=== PATIENT | female | born 1985 | race Hispanic/Latino ===

== ENCOUNTER → 2023-08-18 09:32 | Outpatient (REF) | payer OTHER, SELFPAY ==
[2023-08-18 10:23] LABS: Hemoglobin 9.2 g/dL (12.0-16.0); Mean Corp Hgb Conc. 30.7 g/dL (33.0-37.0); Mean Corpuscular Hgb 20.2 pg (27.0-31.0); Mean Corpuscular Volume 65.8 fL (81.0-99.0); Mean Platelet Volume 9.8 fL (7.4-10.4); Platelet Count 259 10^3/uL (130-400); Red Blood Cell Count 4.56 10^6/uL (4.20-5.40); Red Cell Dist. Width 20.7 % (11.5-14.5)
[2023-08-18 10:50] LABS: ALT (SGPT) 16 U/L (0-35); AST (SGOT) 21 U/L (14-36); Albumin 4.1 g/dl (3.5-5.0); Alkaline Phosphatase 137 U/L (38-126); Blood Urea Nitrogen 12 mg/dl (7-17); Calcium 9.1 mg/dl (8.4-10.2); Carbon Dioxide 24 mmol/L (22-30); Chloride 104 mmol/L (98-107); GGTP 18 U/L (12-43); Glucose 98 mg/dl (70-99); Sodium 134 mmol/L (135-145); Total Bilirubin 0.6 mg/dl (0.2-1.3); Total Protein 7.4 g/dl (6.3-8.2); eGFR > 60.00
[2023-08-18 11:01] LABS: Microalbumin, Random Urine <0.6 mg/dl (0.6-1.7)
[2023-08-18 11:08] LABS: Vitamin D, 25-OH*** 20.1 ng/mL (30-80)
[2023-08-18 14:27] LABS: Glycohemoglobin (HgbA1c) 7.9 % (4.0-5.6)
== END ==
LOC: CLINIC 09:32
PROVIDERS: ATTENDING PHYSICIAN Nurse Practitioner Adult Health
DX: E11.9 Type 2 diabetes mellitus without complications (principal); R80.9 Proteinuria, unspecified; K76.0 Fatty (change of) liver, not elsewhere classified; D64.9 Anemia, unspecified; E55.9 Vitamin D deficiency, unspecified
CPT/HCPCS: 36415; 80053; 82043; 82306; 82570; 82977; 83036; 85027

== ENCOUNTER → 2023-10-22 09:11 | Outpatient (REF) | payer OTHER, SELFPAY ==
[2023-10-22 10:01] LABS: Hematocrit 29.3 % (37.0-47.0); Hemoglobin 8.6 g/dL (12.0-16.0); Mean Corp Hgb Conc. 29.4 g/dL (33.0-37.0); Mean Corpuscular Hgb 19.2 pg (27.0-31.0); Mean Corpuscular Volume 65.3 fL (81.0-99.0); Mean Platelet Volume 10.4 fL (7.4-10.4); Platelet Count 258 10^3/uL (130-400); Red Blood Cell Count 4.49 10^6/uL (4.20-5.40); Red Cell Dist. Width 19.6 % (11.5-14.5); White Blood Cell Count 9.5 10^3/uL (4.8-10.8)
[2023-10-22 10:27] LABS: ALT (SGPT) 24 U/L (0-35); AST (SGOT) 23 U/L (14-36); Albumin 4.2 g/dl (3.5-5.0); Alkaline Phosphatase 132 U/L (38-126); Blood Urea Nitrogen 9 mg/dl (7-17); Carbon Dioxide 26 mmol/L (22-30); Chloride 105 mmol/L (98-107); Glucose 63 mg/dl (70-99); Potassium 3.9 mmol/L (3.5-5.1); Sodium 136 mmol/L (135-145); Total Bilirubin 0.5 mg/dl (0.2-1.3); Total Protein 7.5 g/dl (6.3-8.2); eGFR > 60.00
[2023-10-22 11:08] LABS: Vitamin B12 428 pg/ml (239-931)
[2023-10-22 12:51] LABS: Glycohemoglobin (HgbA1c) 8.7 % (4.0-5.6)
== END ==
LOC: CLINIC 09:11
PROVIDERS: ATTENDING PHYSICIAN Nurse Practitioner Adult Health
DX: E11.9 Type 2 diabetes mellitus without complications (principal); D64.9 Anemia, unspecified; E55.9 Vitamin D deficiency, unspecified
CPT/HCPCS: 36415; 80053; 82306; 82607; 83036; 85027

== ENCOUNTER → 2023-11-19 07:43 | Outpatient (REF) | payer OTHER, SELFPAY ==
[2023-11-19 09:00] LABS: Hematocrit 32.6 % (37.0-47.0); Hemoglobin 9.8 g/dL (12.0-16.0); Mean Corp Hgb Conc. 30.1 g/dL (33.0-37.0); Mean Corpuscular Hgb 19.3 pg (27.0-31.0); Mean Corpuscular Volume 64.3 fL (81.0-99.0); Platelet Count 260 10^3/uL (130-400); Red Blood Cell Count 5.07 10^6/uL (4.20-5.40); Red Cell Dist. Width 21.9 % (11.5-14.5); Reticulocyte Count 2.4 % (0.4-2.8); White Blood Cell Count 12.4 10^3/uL (4.8-10.8)
[2023-11-19 09:15] LABS: Normal RBC Morphology No
[2023-11-19 09:16] LABS: Anisocytosis Slight
[2023-11-19 09:17] LABS: Microcytosis Slight; Stomatocytes Slight
[2023-11-19 09:24] LABS: Iron 34 ug/dl (37-170)
[2023-11-19 09:34] LABS: Percent Saturation 7 % (20-50); Total Iron Binding Capacity 478 ug/dl (265-497)
[2023-11-19 09:50] LABS: Vitamin D, 25-OH*** 23.1 ng/mL (30-80)
[2023-11-19 10:08] LABS: Ferritin 4.4 ng/ml (6.24-137)
[2023-11-19 10:23] LABS: Vitamin B12 642 pg/ml (239-931)
[2023-11-19 12:10] LABS: Glycohemoglobin (HgbA1c) 9.6 % (4.0-5.6)
[2023-11-20 05:11] LABS: H. pylori Breath Test Positive (Negative)
== END ==
LOC: CLINIC 07:43
PROVIDERS: ATTENDING PHYSICIAN Nurse Practitioner Adult Health
DX: D64.9 Anemia, unspecified (principal); E11.9 Type 2 diabetes mellitus without complications; E55.9 Vitamin D deficiency, unspecified
CPT/HCPCS: 36415; 82306; 82607; 82728; 83013; 83036; 83540; 83550; 85027; 85045

== ENCOUNTER → 2024-01-26 10:53 | Outpatient (REF) | payer OTHER, SELFPAY ==
[2024-01-26 13:05] LABS: ALT (SGPT) 13 U/L (0-35); AST (SGOT) 25 U/L (14-36); Albumin 3.8 g/dl (3.5-5.0); Alkaline Phosphatase 106 U/L (38-126); Blood Urea Nitrogen 10 mg/dl (7-17); Calcium 8.8 mg/dl (8.4-10.2); Carbon Dioxide 23 mmol/L (22-30); Chloride 107 mmol/L (98-107); Glucose 93 mg/dl (70-99); Sodium 136 mmol/L (135-145); Total Bilirubin 0.5 mg/dl (0.2-1.3); Total Protein 6.6 g/dl (6.3-8.2); eGFR > 60.00
[2024-01-26 13:13] LABS: Hemoglobin 9.1 g/dL (12.0-16.0); Mean Corp Hgb Conc. 30.3 g/dL (33.0-37.0); Mean Corpuscular Hgb 19.5 pg (27.0-31.0); Mean Corpuscular Volume 64.2 fL (81.0-99.0); Red Blood Cell Count 4.67 10^6/uL (4.20-5.40); Red Cell Dist. Width 21.4 % (11.5-14.5); White Blood Cell Count 6.3 10^3/uL (4.8-10.8)
[2024-01-26 14:01] LABS: Vitamin D, 25-OH*** 18.6 ng/mL (30-80)
[2024-01-26 14:34] LABS: Vitamin B12 435 pg/ml (239-931)
[2024-01-27 13:58] LABS: Glycohemoglobin (HgbA1c) 8.7 % (4.0-5.6)
[2024-01-28 05:05] LABS: H. pylori Breath Test Negative (Negative)
== END ==
LOC: CLINIC 10:53
PROVIDERS: ATTENDING PHYSICIAN Nurse Practitioner Adult Health
DX: E11.9 Type 2 diabetes mellitus without complications (principal); E55.9 Vitamin D deficiency, unspecified; D50.0 Iron deficiency anemia secondary to blood loss (chronic); A04.8 Other specified bacterial intestinal infections
CPT/HCPCS: 36415; 80053; 82306; 82607; 83013; 83036; 85027

== ENCOUNTER → 2024-02-28 11:56 | Outpatient (REF) | payer OTHER, SELFPAY | LOC: CLAB 11:56 | PROVIDERS: ATTENDING PHYSICIAN Obstetrics & Gynecology Gynecology | DX: N92.4 Excessive bleeding in the premenopausal period (principal) | CPT/HCPCS: 88305 ==

== ENCOUNTER → 2024-03-21 09:26 | Outpatient (REF) | payer OTHER, SELFPAY | LOC: RAD 09:26 | PROVIDERS: ATTENDING PHYSICIAN Obstetrics & Gynecology Gynecology; FAMILY PHYSICIAN Nurse Practitioner Adult Health | DX: N92.4 Excessive bleeding in the premenopausal period (principal); D64.9 Anemia, unspecified | CPT/HCPCS: 76830; 76856 ==

== ENCOUNTER → 2024-04-29 09:31 | Outpatient (REF) | payer OTHER, SELFPAY ==
[2024-04-29 11:04] LABS: Hematocrit 33.3 % (37.0-47.0); Hemoglobin 9.8 g/dL (12.0-16.0); Mean Corp Hgb Conc. 29.4 g/dL (33.0-37.0); Mean Corpuscular Hgb 19.8 pg (27.0-31.0); Mean Corpuscular Volume 67.3 fL (81.0-99.0); Mean Platelet Volume 10.3 fL (7.4-10.4); Platelet Count 350 10^3/uL (130-400); Red Blood Cell Count 4.95 10^6/uL (4.20-5.40); Red Cell Dist. Width 19.9 % (11.5-14.5); White Blood Cell Count 8.4 10^3/uL (4.8-10.8)
[2024-04-29 11:36] LABS: Vitamin D, 25-OH*** 20.4 ng/mL (30-80)
[2024-04-29 12:28] LABS: ALT (SGPT) 16 U/L (0-35); AST (SGOT) 20 U/L (14-36); Albumin 4.4 g/dl (3.5-5.0); Alkaline Phosphatase 114 U/L (38-126); Blood Urea Nitrogen 11 mg/dl (7-17); Calcium 9.2 mg/dl (8.4-10.2); Carbon Dioxide 26 mmol/L (22-30); Chloride 102 mmol/L (98-107); Glucose 47 mg/dl (70-99); HDL Cholesterol 40 mg/dl; LDL Cholesterol, Calculated 62 mg/dl; Potassium 3.8 mmol/L (3.5-5.1); Sodium 142 mmol/L (135-145); Total Bilirubin 0.5 mg/dl (0.2-1.3); Total Cholesterol 195 mg/dl (50-199); Total Protein 7.9 g/dl (6.3-8.2); Triglyceride 467 mg/dl (10-149); Very Low Density Lipoprotein 93 mg/dl (0-30); eGFR > 60.00
[2024-04-29 13:06] LABS: Glycohemoglobin (HgbA1c) 8.1 % (4.0-5.6)
[2024-04-29 13:11] LABS: LDL Cholesterol, Direct 83 mg/dl
[2024-04-29 14:32] LABS: Microalbumin, Random Urine 0.8 mg/dl (0.6-1.7); Microalbumin/creatinine Ratio 38.6 mg/g
== END ==
LOC: CLINIC 09:31
PROVIDERS: ATTENDING PHYSICIAN Nurse Practitioner Adult Health
DX: E11.9 Type 2 diabetes mellitus without complications (principal); R80.9 Proteinuria, unspecified; Z86.73 Personal history of transient ischemic attack (TIA), and cerebral infarction without residual deficits; E55.9 Vitamin D deficiency, unspecified; D50.0 Iron deficiency anemia secondary to blood loss (chronic)
CPT/HCPCS: 36415; 80053; 80061; 82043; 82306; 82570; 83036; 83721; 85027

== ENCOUNTER → 2024-06-30 09:35 | Outpatient (REF) | payer OTHER, SELFPAY ==
[2024-06-30 10:45] LABS: % Basophils 0.7 % (0-2); % Immature Granulocytes 0.3 % (0-0.5); % Lymphocytes 25.2 % (20.5-51.1); % Monocytes 6.6 % (1.7-9.3); % Neutrophils 66.2 % (42.2-75.2); Absolute Basophils 0.1 10^3/uL (0-0.2); Absolute Eosinophils 0.1 10^3/uL (0-0.7); Absolute Lymphocytes 2.3 10^3/uL (1.2-3.4); Absolute Monocytes 0.6 10^3/uL (0.1-0.6); Absolute Neutrophils 5.9 10^3/uL (1.4-6.5); Hematocrit 29.8 % (37.0-47.0); Hemoglobin 8.8 g/dL (12.0-16.0); Mean Corp Hgb Conc. 29.5 g/dL (33.0-37.0); Mean Corpuscular Hgb 19.2 pg (27.0-31.0); Mean Corpuscular Volume 65.1 fL (81.0-99.0); Mean Platelet Volume 10.2 fL (7.4-10.4); Nucleated Red Blood Cells % 0 %; Platelet Count 308 10^3/uL (130-400); Red Blood Cell Count 4.58 10^6/uL (4.20-5.40); Red Cell Dist. Width 20.3 % (11.5-14.5); White Blood Cell Count 8.9 10^3/uL (4.8-10.8)
[2024-06-30 11:32] LABS: ALT (SGPT) 16 U/L (0-35); AST (SGOT) 20 U/L (14-36); Albumin 4.2 g/dl (3.5-5.0); Alkaline Phosphatase 123 U/L (38-126); Blood Urea Nitrogen 10 mg/dl (7-17); Calcium 9.1 mg/dl (8.4-10.2); Carbon Dioxide 29 mmol/L (22-30); Chloride 99 mmol/L (98-107); Glucose 57 mg/dl (70-99); HDL Cholesterol 41 mg/dl; LDL Cholesterol, Calculated 66 mg/dl; Potassium 3.9 mmol/L (3.5-5.1); Sodium 140 mmol/L (135-145); Total Bilirubin 0.6 mg/dl (0.2-1.3); Total Cholesterol 174 mg/dl (50-199); Total Protein 7.6 g/dl (6.3-8.2); Triglyceride 335 mg/dl (10-149); Very Low Density Lipoprotein 67 mg/dl (0-30); eGFR > 60.00
[2024-06-30 15:17] LABS: Glycohemoglobin (HgbA1c) 7.5 % (4.0-5.6)
== END ==
LOC: CLINIC 09:35
PROVIDERS: ATTENDING PHYSICIAN Nurse Practitioner Family
DX: E11.9 Type 2 diabetes mellitus without complications (principal); E66.9 Obesity, unspecified
CPT/HCPCS: 36415; 80053; 80061; 83036; 85025

== ENCOUNTER → 2024-07-12 08:58 | Outpatient (REF) | payer OTHER, SELFPAY ==
[2024-07-12 09:40] LABS: Hematocrit 29.8 % (37.0-47.0); Hemoglobin 8.7 g/dL (12.0-16.0); Mean Corp Hgb Conc. 29.2 g/dL (33.0-37.0); Mean Corpuscular Volume 65.1 fL (81.0-99.0); Mean Platelet Volume 9.8 fL (7.4-10.4); Platelet Count 263 10^3/uL (130-400); Red Blood Cell Count 4.58 10^6/uL (4.20-5.40); White Blood Cell Count 7.5 10^3/uL (4.8-10.8)
== END ==
LOC: CLINIC 08:58
PROVIDERS: ATTENDING PHYSICIAN Nurse Practitioner Adult Health
DX: D50.0 Iron deficiency anemia secondary to blood loss (chronic) (principal)
CPT/HCPCS: 36415; 85027

== ENCOUNTER → 2024-08-27 12:30 | Outpatient (REF) | payer OTHER, SELFPAY | LOC: CLINIC 12:30 | PROVIDERS: ATTENDING PHYSICIAN Obstetrics & Gynecology Gynecology | DX: Z30.430 Encounter for insertion of intrauterine contraceptive device (principal) | CPT/HCPCS: 87491; 87591 ==

== ENCOUNTER → 2024-09-23 12:45 | Outpatient (REF) | payer OTHER, SELFPAY | LOC: CLINIC 12:45 | PROVIDERS: ATTENDING PHYSICIAN Internal Medicine Cardiovascular Disease; FAMILY PHYSICIAN Nurse Practitioner Adult Health | DX: Z87.74 Personal history of (corrected) congenital malformations of heart and circulatory system (principal) | CPT/HCPCS: 93306 ==

== ENCOUNTER → 2024-09-27 07:26 | Outpatient (REF) | payer OTHER, SELFPAY ==
[2024-09-27 08:44] LABS: ALT (SGPT) 21 U/L (0-35); AST (SGOT) 22 U/L (14-36); Alkaline Phosphatase 136 U/L (38-126); Blood Urea Nitrogen 10 mg/dl (7-17); Calcium 9.6 mg/dl (8.4-10.2); Carbon Dioxide 27 mmol/L (22-30); Chloride 106 mmol/L (98-107); Glucose 41 mg/dl (70-99); HDL Cholesterol 43 mg/dl; LDL Cholesterol, Calculated 85 mg/dl; Potassium 3.4 mmol/L (3.5-5.1); Sodium 141 mmol/L (135-145); Total Bilirubin 0.8 mg/dl (0.2-1.3); Total Cholesterol 177 mg/dl (50-199); Total Protein 7.2 g/dl (6.3-8.2); Triglyceride 247 mg/dl (10-149); Very Low Density Lipoprotein 49 mg/dl (0-30); eGFR > 60.00
[2024-09-27 08:58] LABS: Microalbumin, Random Urine 2.3 mg/dl (0.6-1.7); Microalbumin/creatinine Ratio 9.1 mg/g
[2024-09-27 09:37] LABS: Hematocrit 31.9 % (37.0-47.0); Hemoglobin 9.2 g/dL (12.0-16.0); Mean Corp Hgb Conc. 28.8 g/dL (33.0-37.0); Mean Corpuscular Hgb 18.2 pg (27.0-31.0); Red Blood Cell Count 5.06 10^6/uL (4.20-5.40); Red Cell Dist. Width 20.6 % (11.5-14.5); White Blood Cell Count 8.7 10^3/uL (4.8-10.8)
== END ==
LOC: CLINIC 07:26
PROVIDERS: ATTENDING PHYSICIAN Nurse Practitioner Adult Health
DX: D50.0 Iron deficiency anemia secondary to blood loss (chronic) (principal); E11.9 Type 2 diabetes mellitus without complications; R80.9 Proteinuria, unspecified; E55.9 Vitamin D deficiency, unspecified; E78.5 Hyperlipidemia, unspecified; Z86.73 Personal history of transient ischemic attack (TIA), and cerebral infarction without residual deficits
CPT/HCPCS: 36415; 80053; 80061; 82043; 82306; 82570; 83036; 85027

== ENCOUNTER → 2024-10-20 10:45 | Outpatient (REF) | payer OTHER, SELFPAY | LOC: REG 10:45 | PROVIDERS: ATTENDING PHYSICIAN Nurse Practitioner Adult Health | DX: E87.6 Hypokalemia (principal) | CPT/HCPCS: 36415; 84132 ==

== ENCOUNTER → 2024-11-14 08:48 | Outpatient (REF) | payer OTHER, SELFPAY ==
[2024-11-14 09:15] VITALS: BP 118/65; BP_SYST 104
[2024-11-14 09:51] VITALS: BP 118/63; BP_SYST 98
[2024-11-14 10:06] VITALS: BP 118/63
== END ==
LOC: RADI 08:48
PROVIDERS: ATTENDING PHYSICIAN Nurse Practitioner Adult Health
DX: Z46.82 Encounter for fitting and adjustment of non-vascular catheter (principal); N70.93 Salpingitis and oophoritis, unspecified
CPT/HCPCS: 49424; 76080

== ENCOUNTER → 2024-11-17 14:06 | Outpatient (REF) | payer OTHER, SELFPAY ==
[2024-11-17 14:51] LABS: ALT (SGPT) 32 U/L (0-35); AST (SGOT) 32 U/L (14-36); Albumin 3.9 g/dl (3.5-5.0); Alkaline Phosphatase 93 U/L (38-126); Blood Urea Nitrogen 9 mg/dl (7-17); Calcium 8.8 mg/dl (8.4-10.2); Carbon Dioxide 26 mmol/L (22-30); Chloride 108 mmol/L (98-107); Glucose 63 mg/dl (70-99); Potassium 3.9 mmol/L (3.5-5.1); Sodium 141 mmol/L (135-145); Total Bilirubin 0.7 mg/dl (0.2-1.3); Total Protein 7.4 g/dl (6.3-8.2); eGFR > 60.00
[2024-11-17 14:54] LABS: C-Reactive Protein < 5.00 mg/L (0.0-10.00)
[2024-11-17 14:58] LABS: % Basophils 0.9 % (0-2); % Eosinophils 1.3 % (0-6); % Monocytes 7.4 % (1.7-9.3); % Neutrophils 62.1 % (42.2-75.2); Hematocrit 31.1 % (37.0-47.0); Hemoglobin 9.2 g/dL (12.0-16.0); Mean Corp Hgb Conc. 29.6 g/dL (33.0-37.0); Mean Corpuscular Hgb 21.2 pg (27.0-31.0); Mean Corpuscular Volume 71.8 fL (81.0-99.0); Mean Platelet Volume 9.7 fL (7.4-10.4); Platelet Count 505 10^3/uL (130-400); Red Blood Cell Count 4.33 10^6/uL (4.20-5.40); Red Cell Dist. Width 31.8 % (11.5-14.5); White Blood Cell Count 7.4 10^3/uL (4.8-10.8)
[2024-11-17 14:59] LABS: % Immature Granulocytes 0.3 % (0-0.5); Absolute Basophils 0.1 10^3/uL (0-0.2); Absolute Eosinophils 0.1 10^3/uL (0-0.7); Absolute Lymphocytes 2.1 10^3/uL (1.2-3.4); Absolute Monocytes 0.6 10^3/uL (0.1-0.6); Absolute Neutrophils 4.6 10^3/uL (1.4-6.5); Nucleated Red Blood Cells % 0 %
[2024-11-17 15:21] LABS: Erythrocyte Sed Rate 72 mm/hour (0-20)
[2024-11-17 15:22] LABS: Normal RBC Morphology No
[2024-11-17 15:23] LABS: Anisocytosis Slight
[2024-11-17 15:24] LABS: Ovalocytes FEW
[2024-11-17 15:26] LABS: Microcytosis Slight; Stomatocytes FEW; Tear Drop Red Blood Cells FEW
== END ==
LOC: REG 14:06
PROVIDERS: ATTENDING PHYSICIAN Nurse Practitioner Adult Health
DX: N70.93 Salpingitis and oophoritis, unspecified (principal); A40.0 Sepsis due to streptococcus, group A
CPT/HCPCS: 80053; 85025; 85652; 86140

== ENCOUNTER → 2025-01-01 11:23 | Outpatient (REF) | payer OTHER, SELFPAY ==
[2025-01-01 13:22] LABS: Hematocrit 35.2 % (37.0-47.0); Hemoglobin 11.3 g/dL (12.0-16.0); Mean Corp Hgb Conc. 32.1 g/dL (33.0-37.0); Mean Corpuscular Volume 74.4 fL (81.0-99.0); Platelet Count 215 10^3/uL (130-400); Red Cell Dist. Width 24.4 % (11.5-14.5)
[2025-01-01 14:08] LABS: Glycohemoglobin (HgbA1c) 7.8 % (4.0-5.6)
[2025-01-01 14:10] LABS: Ferritin 4.5 ng/ml (6.24-137)
[2025-01-01 14:14] LABS: ALT (SGPT) 15 U/L (0-35); AST (SGOT) 19 U/L (14-36); Albumin 4.1 g/dl (3.5-5.0); Alkaline Phosphatase 112 U/L (38-126); Blood Urea Nitrogen 12 mg/dl (7-17); Calcium 9.0 mg/dl (8.4-10.2); Carbon Dioxide 24 mmol/L (22-30); Chloride 108 mmol/L (98-107); Glucose 50 mg/dl (70-99); Iron 54 ug/dl (37-170); Potassium 3.8 mmol/L (3.5-5.1); Sodium 137 mmol/L (135-145); Total Iron Binding Capacity 459 ug/dl (265-497); Total Protein 7.5 g/dl (6.3-8.2); eGFR > 60.00
[2025-01-01 14:25] LABS: Vitamin B12 260 pg/ml (239-931)
[2025-01-01 15:31] LABS: Microalb - Urine Creatinine 65.400 mg/dl
[2025-01-01 15:39] LABS: Microalbumin, Random Urine < 0.6 mg/dl (0.6-1.7)
== END ==
LOC: CLINIC 11:23
PROVIDERS: ATTENDING PHYSICIAN Nurse Practitioner Adult Health
DX: E11.9 Type 2 diabetes mellitus without complications (principal); R80.9 Proteinuria, unspecified; D50.0 Iron deficiency anemia secondary to blood loss (chronic); K76.0 Fatty (change of) liver, not elsewhere classified
CPT/HCPCS: 36415; 80053; 82043; 82570; 82607; 82728; 83036; 83540; 83550; 85027

== ENCOUNTER → 2025-01-28 09:49 | Outpatient (REF) | payer OTHER, SELFPAY ==
[2025-01-28 10:59] LABS: Hematocrit 34.9 % (37.0-47.0); Hemoglobin 11.0 g/dL (12.0-16.0); Mean Corp Hgb Conc. 31.5 g/dL (33.0-37.0); Mean Corpuscular Volume 75.1 fL (81.0-99.0); Nucleated Red Blood Cells % 0 %; Platelet Count 272 10^3/uL (130-400); Red Cell Dist. Width 18.6 % (11.5-14.5)
== END ==
LOC: CLINIC 09:49
PROVIDERS: ATTENDING PHYSICIAN Obstetrics & Gynecology Gynecology; FAMILY PHYSICIAN Nurse Practitioner Adult Health
DX: N70.93 Salpingitis and oophoritis, unspecified (principal); Z12.4 Encounter for screening for malignant neoplasm of cervix
CPT/HCPCS: 36415; 85025

== ENCOUNTER → 2025-02-09 14:41 | Outpatient (REF) | payer OTHER, SELFPAY | LOC: RAD 14:41 | PROVIDERS: ATTENDING PHYSICIAN Obstetrics & Gynecology Gynecology | DX: N70.93 Salpingitis and oophoritis, unspecified (principal); T83.32XA Displacement of intrauterine contraceptive device, initial encounter | CPT/HCPCS: 76830; 76856 ==

== ENCOUNTER → 2025-02-12 13:22 | Outpatient (REF) | payer OTHER, SELFPAY | LOC: CLINIC 13:22 | PROVIDERS: ATTENDING PHYSICIAN Obstetrics & Gynecology Gynecology | DX: T83.32XA Displacement of intrauterine contraceptive device, initial encounter (principal) | CPT/HCPCS: 74018 ==

== ENCOUNTER → 2025-03-05 06:21 | Outpatient (REF) | payer OTHER, SELFPAY ==
[2025-03-05 08:19] LABS: ALT (SGPT) 16 U/L (0-35); AST (SGOT) 18 U/L (14-36); HDL Cholesterol 42 mg/dl; LDL Cholesterol, Calculated 57 mg/dl; Very Low Density Lipoprotein 21 mg/dl (0-30)
== END ==
LOC: CLINIC 06:21
DX: E78.5 Hyperlipidemia, unspecified (principal)
CPT/HCPCS: 36415; 80061; 84450; 84460

== ENCOUNTER → 2025-04-04 10:03 | Outpatient (REF) | payer OTHER, SELFPAY ==
[2025-04-04 10:48] LABS: Hematocrit 37.9 % (37.0-47.0); Hemoglobin 11.3 g/dL (12.0-16.0); Mean Corp Hgb Conc. 29.8 g/dL (33.0-37.0); Mean Corpuscular Volume 79.6 fL (81.0-99.0); Nucleated Red Blood Cells % 0 %; Platelet Count 285 10^3/uL (130-400); Red Cell Dist. Width 20.4 % (11.5-14.5)
[2025-04-04 11:20] LABS: ALT (SGPT) 22 U/L (0-35); AST (SGOT) 24 U/L (14-36); Albumin 4.2 g/dl (3.5-5.0); Alkaline Phosphatase 123 U/L (38-126); Blood Urea Nitrogen 6 mg/dl (7-17); Calcium 8.9 mg/dl (8.4-10.2); Carbon Dioxide 26 mmol/L (22-30); Chloride 105 mmol/L (98-107); Glucose 135 mg/dl (70-99); Potassium 3.6 mmol/L (3.5-5.1); Sodium 139 mmol/L (135-145); Total Protein 7.4 g/dl (6.3-8.2); eGFR > 60.00
[2025-04-04 11:25] LABS: Vitamin D, 25-OH*** 26.6 ng/mL (30-80)
[2025-04-04 11:55] LABS: Glycohemoglobin (HgbA1c) 8.2 % (4.0-5.6)
[2025-04-04 11:58] LABS: Vitamin B12 531 pg/ml (239-931)
== END ==
LOC: CLINIC 10:03
PROVIDERS: ATTENDING PHYSICIAN Nurse Practitioner Adult Health
DX: K76.0 Fatty (change of) liver, not elsewhere classified (principal); E11.9 Type 2 diabetes mellitus without complications; D50.0 Iron deficiency anemia secondary to blood loss (chronic)
CPT/HCPCS: 36415; 80053; 82306; 82607; 83036; 85025